=== PATIENT | male | born 1960 | race African-American/Black ===

== ENCOUNTER 2023-05-15 17:13 | Emergency (ER) | payer MEDICAID, OTHER ==
[~2023-05-15] VITALS: Ht 175.3 cm; Wt 81.0 kg
[~2023-05-15 17:13] MED LIST: BENA10TA74 PO; EZET10TA81 PO; LEVO125T50 PO; MESA400T14 PO; MULT-783 PO; OMEP20CA14 PO; PURINETHOL; SUCR1TAB PO
[2023-05-15 17:16] VITALS: O2SAT 100
[2023-05-15 18:43] LABS: BASOPHILS % 0.9 % (0.0-2.0); EOSINOPHILS % 1.3 % (0.0-5.0); HEMATOCRIT. 36.3 % (42.0-52.0); HEMOGLOBIN. 11.8 g/dL (14.0-18.0); LYMPHOCYTES % 15.8 % (20.0-50.0); MEAN CORPUSCULAR HGB CONC 32.5 g/dL (31.0-37.0); MEAN CORPUSCULAR VOLUME 98.6 fL (80.0-94.0); MEAN PLATELET VOLUME 7.6 fl (7.4-10.4); MONOCYTES % 8.5 % (2.0-8.0); NEUTROPHILS % 73.5 % (40.0-76.0); PLATELET 193 x1000/uL (130-400); RED BLOOD CELL COUNT 3.68 mill/uL (4.7-6.1); RED CELL DISTRIBUTION WIDTH 18.3 % (11.6-14.6); WHITE BLOOD COUNT 7.5 x1000/uL (4.5-11.0)
[2023-05-15 18:59] LABS: ALANINE AMINOTRANSFERASE 81 IU/L (10-49); ALBUMIN 4.4 g/dL (3.2-4.8); ASPARTATE AMINOTRANSFERASE 52 IU/L (<34); BILIRUBIN TOTAL 0.7 mg/dL (0.1-1.0); CALCIUM 7.7 mg/dL (8.7-10.4); CARBON DIOXIDE 24 mEq/L (21-32); CHLORIDE 99 mEq/L (98-107); CREATININE 1.9 mg/dL (0.6-1.3); GLUCOSE 109 mg/dL (70-105); POTASSIUM 3.7 mEq/L (3.5-5.1); PROTEIN TOTAL 7.1 g/dL (6.0-8.3); SODIUM 134 mEq/L (136-145); TROPONIN I HIGH SENSITIVITY 10 ng/L (3.0-53); UREA NITROGEN BLOOD 13 mg/dL (9-23)
[2023-05-15 19:54] VITALS: TEMP 98.6
[2023-05-15 21:04] LABS: TROPONIN I HIGH SENSITIVITY 8 ng/L (3.0-53)
[2023-05-15 21:50] VITALS: BP 108/64; PULSE 97; RESP 18
== END 2023-05-15 21:50 | disposition home or self-care (01) ==
LOC: ER 17:13
DX: K51.90 Ulcerative colitis, unspecified, without complications (principal); I10 Essential (primary) hypertension
CPT/HCPCS: 36415; 71045; 80053; 83880; 84484; 85025; 93005; 99285